=== PATIENT | male | born 1985 | race Caucasian/White ===

== ENCOUNTER 2019-01-27 20:05 | Emergency (ER) | payer MEDICAID ==
[~2019-01-27] VITALS: Ht 177.8 cm; Wt 69.9 kg
--- NOTE | 2019-01-27 20:10 | NUR ---
RECEIVED PT AMBULATORY FROM HOME C/O SORETHROAT, COUGH CONGESTION AND SINUS PAIN + HEADACHE SINCE LAST NIGHT. DENIES FEVERS/CHILLS AT HOME, DENIES NVD, DENIES LOC, DENIES RECENT TRAVELS, DENIES ANY CHANGES IN B/B FUNCTION. MD AT BEDSIDE FOR HX AND PHYSICAL SIDERAILSX2 UP FOR SAFETY, BED ON LOWEST POSITION, MONITORED ACCORDINGLY
--- NOTE | 2019-01-27 20:55 | NUR ---
Patient discharged to home in stable conditon. Written and verbal after care instructions given. Patient verbalizes understanding of instructions. ALL BELONGINGS WITH PT. AMBULATORY WITH STABLE GAIT.
[2019-01-27 21:01] VITALS: BP 123/80
== END 2019-01-27 21:04 | disposition home or self-care (01) ==
LOC: ER 20:07
DX: K08.89 Other specified disorders of teeth and supporting structures (principal); J02.9 Acute pharyngitis, unspecified; F17.200 Nicotine dependence, unspecified, uncomplicated
CPT/HCPCS: A4663

== ENCOUNTER 2019-05-15 13:09 | Emergency (ER) | payer MEDICAID ==
[~2019-05-15] VITALS: Ht 180.3 cm; Wt 72.6 kg
--- NOTE | 2019-05-15 13:42 | NUR ---
Patient experiencing backpain for 2 month and c/o acid reflux for 4xmonths. Patient states he had a fever yesterday and is unsure of temperature amount
== END 2019-05-15 13:47 | disposition home or self-care (01) ==
LOC: ER 13:09
DX: J40 Bronchitis, not specified as acute or chronic (principal); K29.70 Gastritis, unspecified, without bleeding; G89.29 Other chronic pain; M54.9 Dorsalgia, unspecified; F17.200 Nicotine dependence, unspecified, uncomplicated
CPT/HCPCS: A4663

== ENCOUNTER 2024-01-17 16:20 | Inpatient (IN) | payer MEDICAID, OTHER ==
[~2024-01-17] VITALS: Ht 180.3 cm; Wt 74.3 kg
[2024-01-17 16:51] LABS: BASOPHILS % (AUTO) 0.3 % (0.0-2.0); EOSINOPHILS # (AUTO) 0.3 K/uL (0.0-0.7); EOSINOPHILS % (AUTO) 3.4 % (0.0-7.0); HEMATOCRIT 40.7 % (36.7-47.1); HEMOGLOBIN 13.7 g/dL (12.5-16.3); LYMPHOCYTES % (AUTO) 21.4 % (20.5-51.5); MEAN CORPUSCULAR HEMOGLOBIN 30.9 uug (23.8-33.4); MEAN CORPUSCULAR HGB CONC 34 g/dL (32.5-36.3); MONOCYTES # (AUTO) 0.7 K/uL (0.1-1.30); MONOCYTES % (AUTO) 7.9 % (0.0-11.0); NEUTROPHILS # (AUTO) 6.2 K/uL (1.8-8.9); PLATELET COUNT (AUTO) 285 K/uL (152-348); RED BLOOD CELL COUNT(AUTO) 4.43 MIL/uL (4.06-5.63); RED CELL DISTRIBUTION WIDTH 13.5 % (12.1-16.2); WHITE BLOOD COUNT (AUTO) 9.3 K/uL (3.6-10.2)
[2024-01-17 16:53] LABS: DIFFERENTIAL COMMENT 1
[2024-01-17 17:02] LABS: CALCIUM 8.6 mg/dL (8.5-10.1); CARBON DIOXIDE 30 mmol/L (21-32); CHLORIDE 104 mmol/L (98-107); CREATININE 0.8 mg/dL (0.6-1.3); GLUCOSE 132 mg/dL (74-106); POTASSIUM 3.9 mmol/L (3.5-5.1); SODIUM SERUM 140 mmol/L (136-145); UREA NITROGEN, BLOOD 8 mg/dL (7-18)
[2024-01-17 17:03] LABS: AMMONIA 22 umol/L (11-32)
[2024-01-17 17:07] LABS: ETHANOL < 3 MG/DL (0-10)
[2024-01-17] MEDS: IV NORMAL SALINE 1000 ML BAG IV ONE (17:14)
[2024-01-17 17:15] LABS: THYROID STIMULATING HORMONE 0.945 mIU/mL (0.358-3.740)
--- NOTE | 2024-01-17 17:16 | NUR ---
patient states syncopal episode x 1 day. states recent flu like symptoms. Patient A/O x 4 and ambulatory without assistance. speaks farsi. No signs of distress
[2024-01-17 17:19] LABS: ACETAMINOPHEN < 2.0 ug/mL (10-30); ALANINE AMINOTRANSFERASE 30 U/L (16-63); ALBUMIN 3.5 g/dL (3.4-5.0); ALKALINE PHOSPHATASE 72 U/L (50-136); ASPARTATE AMINOTRANSFERASE 21 U/L (15-37); BILIRUBIN,DIRECT 0.1 mg/dL (0.0-0.2); BILIRUBIN,TOTAL 0.3 mg/dL (0.2-1.0); TOTAL PROTEIN, SERUM 6.6 g/dL (6.4-8.2)
[2024-01-17] MEDS ORDERED: AZITHROMYCIN 250 MG TABLET ONE (17:35)
[2024-01-17] MEDS ORDERED: CEFTRIAXONE /D5W 50ML IVPB **ER PYXIS IV ONE (17:35)
[2024-01-17] MEDS: AZITHROMYCIN 250 MG TABLET PO ONE (17:38)
[2024-01-17] MEDS: CEFTRIAXONE 1 G in IV DEXTROSE 5% 50 ML IV ONE (17:38)
[2024-01-17] MEDS ORDERED: CELLULOSE,OXIDIZED 2x3 MC ONE (17:59)
[2024-01-17] MEDS ORDERED: IOHEXOL 350 100 ML INFUS..BTL ONE (17:59)
[2024-01-17] MEDS ORDERED: IV NORMAL SALINE 250 ML IV ONE (17:59)
[2024-01-17] MEDS ORDERED: SWABABLE VALVE TRANSFER SET EA MC ONE (18:00)
[2024-01-17 19:51] LABS: *BILIRUBIN,URIN NEGATIVE (NEGATIVE); *BLOOD, URINE NEGATIVE (NEGATIVE); *CLARITY,URINE CLEAR (CLEAR); *COLOR,URINE YELLOW (YELLOW); *KETONES,URINE NEGATIVE (NEGATIVE); *PROTEIN,URINE NEGATIVE (NEGATIVE); *UROBILINOGEN,URINE 0.2 E.U./dl (NORMAL); LEUKOCYTE ESTERASE ,URINE NEGATIVE (NEGATIVE); NITRITE, URINE POSITIVE (NEGATIVE); PH,URINE 6.5 (5.0-8.0); UGLUCOSE NEGATIVE (NEGATIVE)
[2024-01-17 19:53] LABS: *AMPHETAMINE, URINE POSITIVE (NEGATIVE); *BARBITURATE, URINE NEGATIVE (NEGATIVE); *BENZODIAZEPINE, URINE NEGATIVE (NEGATIVE); *CANNABINOID, URINE NEGATIVE (NEGATIVE); *COCCAINE, URINE NEGATIVE (NEGATIVE); *OPIATE, URINE NEGATIVE (NEGATIVE); *PHENCYCLIDINE SCREEN,URINE NEGATIVE (NEGATIVE); FENTANYL, URINE POSITIVE (NEGATIVE)
[2024-01-17 19:59] LABS: BACTERIA,URINE MODERATE /HPF (NONE SEEN); RBC,URINE 0-3 /HPF (0-3); SQUAMOUS EPITHELIAL CELL,UR MODERATE /HPF (NONE SEEN)
--- NOTE | 2024-01-17 20:31 | NUR ---
Called [facility] to page Dr. Chad Abdi.
--- NOTE | 2024-01-17 20:40 | NUR ---
Dr. Shoemaker on panel call with Dr. Chad Abdi.
[2024-01-17] MEDS ORDERED: ONDANSETRON 4 MG/2 ML VIAL IV PRN (21:00)
[2024-01-17] MEDS ORDERED: ACETAMINOPHEN 325 MG TABLET PO PRN (21:00)
[2024-01-17] MEDS ORDERED: IV NS 1000 ML 1,000 ML IV PRN (21:00)
--- NOTE | 2024-01-17 21:22 | NUR ---
Report given to Tonya CASTILLO Tele.
[2024-01-17 22:00] VITALS: BP 100/59; TEMP 97.7; O2SAT 99
--- NOTE | 2024-01-17 22:05 | NUR ---
Received patient from ED for admission due to syncope. He is awake, alert, and oriented x3-4. Sinus rhythm on tele monitor with HR of 69. All other vitals signs stable. Breathing on room air without any s/s of respiratory distress. Complaint of pain related to headache 08/08. No complaints of N/V at this time. IV site on bilateral ACs are intact and patent. Oriented patient to room. Implemented fall prevention measures and reminded patient to call for assistance to the bathroom. All needs attended to. Call light within easy reach. Plan of care initiated.
[2024-01-18] VITALS: BP 99/54; TEMP 98.2; O2SAT 97
[2024-01-18 06:47] LABS: BASOPHILS % (AUTO) 0.5 % (0.0-2.0); EOSINOPHILS # (AUTO) 0.3 K/uL (0.0-0.7); EOSINOPHILS % (AUTO) 3.9 % (0.0-7.0); HEMATOCRIT 42.1 % (36.7-47.1); LYMPHOCYTES # (AUTO) 2.3 K/uL (0.8-4.8); LYMPHOCYTES % (AUTO) 25.7 % (20.5-51.5); MEAN CORPUSCULAR HEMOGLOBIN 30.7 uug (23.8-33.4); MEAN CORPUSCULAR HGB CONC 33 g/dL (32.5-36.3); MEAN CORPUSCULAR VOLUME 92.1 fL (73.0-96.2); MONOCYTES # (AUTO) 0.7 K/uL (0.1-1.30); MONOCYTES % (AUTO) 7.9 % (0.0-11.0); NEUTROPHILS # (AUTO) 5.4 K/uL (1.8-8.9); PLATELET COUNT (AUTO) 271 K/uL (152-348); RED BLOOD CELL COUNT(AUTO) 4.57 MIL/uL (4.06-5.63); RED CELL DISTRIBUTION WIDTH 14.2 % (12.1-16.2); WHITE BLOOD COUNT (AUTO) 8.8 K/uL (3.6-10.2)
[2024-01-18 06:51] LABS: DIFFERENTIAL COMMENT 1
[2024-01-18 07:03] LABS: CALCIUM 8.3 mg/dL (8.5-10.1); CARBON DIOXIDE 27 mmol/L (21-32); CHLORIDE 106 mmol/L (98-107); CHOLESTEROL 140 mg/dL (<200); CREATININE 0.6 mg/dL (0.6-1.3); GLUCOSE 91 mg/dL (74-106); HDL CHOLESTEROL 29 mg/dL (40-60); MAGNESIUM 2.1 mg/dL (1.8-2.4); PHOSPHOROUS 3.3 mg/dL (2.5-4.9); POTASSIUM 3.9 mmol/L (3.5-5.1); SODIUM SERUM 140 mmol/L (136-145); TRIGLYCERIDES 145 MG/DL (30-150); UREA NITROGEN, BLOOD 5 mg/dL (7-18)
[2024-01-18 07:28] VITALS: BP 112/78; TEMP 98.4; O2SAT 97
--- NOTE | 2024-01-18 08:00 | NUR ---
RECEIVED PATIENT IN BED SLEEPING WITH EYES CLOSE NO SIGNS OF DISTRESS SR ON MONITOR
--- NOTE | 2024-01-18 10:00 | NUR ---
SEEN BY DR ARAIZA FOR F/U WITH DISCHARGE ORDER, LAMINATING MACHINE OPERATOR RN FLOAT MADE AWARE. AT BEDSIDE AND WILL TAKE PATIENT HOME WHEN READY
--- NOTE | 2024-01-18 11:17 | NUR ---
DISCHARGED HOME STABLE ACCOMPANIED BY VIA PRIVATE CAR. FOLLOW-UP INSTRUCTION WITH PCP GIVEN. NO HOME MEDS
--- NOTE | 2024-01-18 12:17 | NUR ---
Social work consult requested but patient was discharged.
== END 2024-01-18 11:15 | disposition home or self-care (01) | DRG 422 ==
LOC: ER 16:24 → TELE3 21:23 → MEDSURG3 01-18 10:05
PROVIDERS: ADMIT Internal Medicine; ATTEND Internal Medicine
DX: E86.0 Dehydration (principal); F11.10 Opioid abuse, uncomplicated; F19.10 Other psychoactive substance abuse, uncomplicated; R07.9 Chest pain, unspecified; R51.9 Headache, unspecified; J43.9 Emphysema, unspecified; F17.210 Nicotine dependence, cigarettes, uncomplicated; F15.90 Other stimulant use, unspecified, uncomplicated
CPT/HCPCS: 36415; 70450; 71045; 71275; 83605; 83735; 84100; 84443; 84484; 85025; 85730; 87040; 93005; G0378; G0480; J0696; J7040; Q0144; Q9967